=== PATIENT | female | born 1940 | race African-American/Black ===

== ENCOUNTER → 2016-10-04 | Outpatient (CLI) | payer OTHER | LOC: HYPER 07:05 | DX: I87.332 Chronic venous hypertension (idiopathic) with ulcer and inflammation of left lower extremity (principal); L97.822 Non-pressure chronic ulcer of other part of left lower leg with fat layer exposed; I10 Essential (primary) hypertension; E66.09 Other obesity due to excess calories; D50.9 Iron deficiency anemia, unspecified; I87.2 Venous insufficiency (chronic) (peripheral); F41.9 Anxiety disorder, unspecified ==

== ENCOUNTER → 2016-12-25 | Outpatient (CLI) | payer OTHER | LOC: HYPER 06:59 | DX: I87.332 Chronic venous hypertension (idiopathic) with ulcer and inflammation of left lower extremity (principal); L97.822 Non-pressure chronic ulcer of other part of left lower leg with fat layer exposed; E66.09 Other obesity due to excess calories; F41.9 Anxiety disorder, unspecified; Z96.659 Presence of unspecified artificial knee joint ==

== ENCOUNTER → 2017-01-11 | Outpatient (CLI) | payer OTHER | LOC: HYPER 07:13 | DX: I87.332 Chronic venous hypertension (idiopathic) with ulcer and inflammation of left lower extremity (principal); L97.822 Non-pressure chronic ulcer of other part of left lower leg with fat layer exposed; E66.09 Other obesity due to excess calories; F41.9 Anxiety disorder, unspecified ==

== ENCOUNTER → 2017-02-01 | Outpatient (CLI) | payer OTHER | LOC: HYPER 07:08 | DX: I87.332 Chronic venous hypertension (idiopathic) with ulcer and inflammation of left lower extremity (principal); L97.821 Non-pressure chronic ulcer of other part of left lower leg limited to breakdown of skin; L97.411 Non-pressure chronic ulcer of right heel and midfoot limited to breakdown of skin; E66.09 Other obesity due to excess calories; I10 Essential (primary) hypertension; R60.0 Localized edema; F41.9 Anxiety disorder, unspecified; D50.9 Iron deficiency anemia, unspecified ==

== ENCOUNTER → 2017-03-07 | Outpatient (CLI) | payer OTHER | LOC: HYPER 02-26 15:12 | DX: I87.332 Chronic venous hypertension (idiopathic) with ulcer and inflammation of left lower extremity (principal); L97.822 Non-pressure chronic ulcer of other part of left lower leg with fat layer exposed; I25.10 Atherosclerotic heart disease of native coronary artery without angina pectoris; E66.09 Other obesity due to excess calories; I10 Essential (primary) hypertension; F41.9 Anxiety disorder, unspecified; Z68.36 Body mass index [BMI] 36.0-36.9, adult ==

== ENCOUNTER → 2017-03-28 | Outpatient (CLI) | payer OTHER | LOC: HYPER 06:58 | DX: I87.332 Chronic venous hypertension (idiopathic) with ulcer and inflammation of left lower extremity (principal); L97.822 Non-pressure chronic ulcer of other part of left lower leg with fat layer exposed; L84 Corns and callosities; E66.09 Other obesity due to excess calories; Z68.36 Body mass index [BMI] 36.0-36.9, adult; F41.9 Anxiety disorder, unspecified; R26.9 Unspecified abnormalities of gait and mobility ==

== ENCOUNTER → 2017-04-25 | Outpatient (CLI) | payer OTHER | LOC: HYPER 04-18 10:45 | DX: I87.332 Chronic venous hypertension (idiopathic) with ulcer and inflammation of left lower extremity (principal); L97.822 Non-pressure chronic ulcer of other part of left lower leg with fat layer exposed; E66.09 Other obesity due to excess calories; Z68.36 Body mass index [BMI] 36.0-36.9, adult; F41.9 Anxiety disorder, unspecified; L84 Corns and callosities; R26.9 Unspecified abnormalities of gait and mobility ==

== ENCOUNTER → 2017-05-09 | Outpatient (CLI) | payer OTHER | LOC: HYPER 07:02 | DX: I87.332 Chronic venous hypertension (idiopathic) with ulcer and inflammation of left lower extremity (principal); L97.822 Non-pressure chronic ulcer of other part of left lower leg with fat layer exposed; E66.09 Other obesity due to excess calories; Z68.36 Body mass index [BMI] 36.0-36.9, adult; L84 Corns and callosities ==

== ENCOUNTER → 2017-05-30 | Outpatient (CLI) | payer OTHER | LOC: HYPER 06:48 | DX: I87.332 Chronic venous hypertension (idiopathic) with ulcer and inflammation of left lower extremity (principal); L97.822 Non-pressure chronic ulcer of other part of left lower leg with fat layer exposed; E66.09 Other obesity due to excess calories; Z68.36 Body mass index [BMI] 36.0-36.9, adult; F41.9 Anxiety disorder, unspecified ==

== ENCOUNTER → 2017-06-20 | Outpatient (CLI) | payer OTHER | LOC: HYPER 07:09 | DX: I87.332 Chronic venous hypertension (idiopathic) with ulcer and inflammation of left lower extremity (principal); L97.822 Non-pressure chronic ulcer of other part of left lower leg with fat layer exposed; E66.09 Other obesity due to excess calories; R60.0 Localized edema; F41.9 Anxiety disorder, unspecified ==

== ENCOUNTER → 2017-07-03 | Outpatient (CLI) | payer OTHER | LOC: HYPER 07:23 | DX: I87.332 Chronic venous hypertension (idiopathic) with ulcer and inflammation of left lower extremity (principal); L97.822 Non-pressure chronic ulcer of other part of left lower leg with fat layer exposed; E66.09 Other obesity due to excess calories; Z68.36 Body mass index [BMI] 36.0-36.9, adult; F41.9 Anxiety disorder, unspecified ==

== ENCOUNTER → 2017-08-14 | Outpatient (CLI) | payer OTHER | LOC: HYPER 06:45 | DX: I87.332 Chronic venous hypertension (idiopathic) with ulcer and inflammation of left lower extremity (principal); L97.822 Non-pressure chronic ulcer of other part of left lower leg with fat layer exposed; E66.09 Other obesity due to excess calories; L84 Corns and callosities; F41.9 Anxiety disorder, unspecified; Z68.36 Body mass index [BMI] 36.0-36.9, adult ==

== ENCOUNTER → 2017-09-27 | Outpatient (CLI) | payer OTHER | LOC: HYPER 06:50 | DX: I87.332 Chronic venous hypertension (idiopathic) with ulcer and inflammation of left lower extremity (principal); L97.822 Non-pressure chronic ulcer of other part of left lower leg with fat layer exposed; L84 Corns and callosities; F41.9 Anxiety disorder, unspecified; E66.09 Other obesity due to excess calories; Z68.36 Body mass index [BMI] 36.0-36.9, adult; Z96.659 Presence of unspecified artificial knee joint ==

== ENCOUNTER → 2017-10-11 | Outpatient (CLI) | payer OTHER | LOC: HYPER 06:33 | DX: I87.332 Chronic venous hypertension (idiopathic) with ulcer and inflammation of left lower extremity (principal); L97.822 Non-pressure chronic ulcer of other part of left lower leg with fat layer exposed; L84 Corns and callosities; I25.10 Atherosclerotic heart disease of native coronary artery without angina pectoris; F41.9 Anxiety disorder, unspecified; E66.09 Other obesity due to excess calories; Z68.36 Body mass index [BMI] 36.0-36.9, adult ==

== ENCOUNTER → 2017-11-15 | Outpatient (CLI) | payer OTHER | LOC: HYPER 08:37 | DX: I87.332 Chronic venous hypertension (idiopathic) with ulcer and inflammation of left lower extremity (principal); L97.822 Non-pressure chronic ulcer of other part of left lower leg with fat layer exposed; R60.0 Localized edema; L84 Corns and callosities; E66.01 Morbid (severe) obesity due to excess calories; F41.9 Anxiety disorder, unspecified; Z68.36 Body mass index [BMI] 36.0-36.9, adult ==

== ENCOUNTER → 2017-12-17 | Outpatient (CLI) | payer OTHER | LOC: HYPER 12-06 09:41 | DX: I87.332 Chronic venous hypertension (idiopathic) with ulcer and inflammation of left lower extremity (principal); L97.822 Non-pressure chronic ulcer of other part of left lower leg with fat layer exposed; E66.09 Other obesity due to excess calories; Z68.36 Body mass index [BMI] 36.0-36.9, adult; R60.0 Localized edema; L84 Corns and callosities; B35.3 Tinea pedis; F41.9 Anxiety disorder, unspecified ==

== ENCOUNTER → 2018-01-03 | Outpatient (CLI) | payer OTHER | LOC: HYPER 06:56 | DX: I87.332 Chronic venous hypertension (idiopathic) with ulcer and inflammation of left lower extremity (principal); L97.822 Non-pressure chronic ulcer of other part of left lower leg with fat layer exposed; L84 Corns and callosities; E66.09 Other obesity due to excess calories; B35.3 Tinea pedis; F41.9 Anxiety disorder, unspecified; Z68.36 Body mass index [BMI] 36.0-36.9, adult ==

== ENCOUNTER → 2018-02-21 | Outpatient (CLI) | payer OTHER | LOC: HYPER 06:45 | DX: I87.332 Chronic venous hypertension (idiopathic) with ulcer and inflammation of left lower extremity (principal); L97.822 Non-pressure chronic ulcer of other part of left lower leg with fat layer exposed; I10 Essential (primary) hypertension; L84 Corns and callosities; E66.01 Morbid (severe) obesity due to excess calories; B35.3 Tinea pedis; F41.9 Anxiety disorder, unspecified; Z68.36 Body mass index [BMI] 36.0-36.9, adult ==

== ENCOUNTER → 2018-03-06 | Outpatient (CLI) | payer OTHER | LOC: HYPER 07:06 | DX: I87.332 Chronic venous hypertension (idiopathic) with ulcer and inflammation of left lower extremity (principal); L97.822 Non-pressure chronic ulcer of other part of left lower leg with fat layer exposed; L84 Corns and callosities; I10 Essential (primary) hypertension; E66.09 Other obesity due to excess calories; B35.3 Tinea pedis; F41.9 Anxiety disorder, unspecified; Z68.36 Body mass index [BMI] 36.0-36.9, adult ==

== ENCOUNTER → 2018-03-21 | Outpatient (CLI) | payer OTHER | LOC: HYPER 06:49 | DX: I87.332 Chronic venous hypertension (idiopathic) with ulcer and inflammation of left lower extremity (principal); L97.822 Non-pressure chronic ulcer of other part of left lower leg with fat layer exposed; R60.0 Localized edema; B35.3 Tinea pedis; L84 Corns and callosities; F41.9 Anxiety disorder, unspecified; E66.09 Other obesity due to excess calories; Z68.36 Body mass index [BMI] 36.0-36.9, adult ==

== ENCOUNTER → 2018-04-04 | Outpatient (CLI) | payer OTHER | LOC: HYPER 07:13 | DX: I87.332 Chronic venous hypertension (idiopathic) with ulcer and inflammation of left lower extremity (principal); L97.822 Non-pressure chronic ulcer of other part of left lower leg with fat layer exposed; L84 Corns and callosities; E66.09 Other obesity due to excess calories; B35.3 Tinea pedis; F41.9 Anxiety disorder, unspecified; Z68.36 Body mass index [BMI] 36.0-36.9, adult; Z96.659 Presence of unspecified artificial knee joint ==

== ENCOUNTER → 2018-05-14 | Outpatient (CLI) | payer OTHER | LOC: HYPER 07:03 | DX: I87.332 Chronic venous hypertension (idiopathic) with ulcer and inflammation of left lower extremity (principal); L97.822 Non-pressure chronic ulcer of other part of left lower leg with fat layer exposed; E66.09 Other obesity due to excess calories; L84 Corns and callosities; B35.3 Tinea pedis; F41.9 Anxiety disorder, unspecified; Z68.36 Body mass index [BMI] 36.0-36.9, adult ==

== ENCOUNTER → 2018-06-13 | Outpatient (CLI) | payer OTHER | LOC: HYPER 07:02 | DX: I87.332 Chronic venous hypertension (idiopathic) with ulcer and inflammation of left lower extremity (principal); L97.822 Non-pressure chronic ulcer of other part of left lower leg with fat layer exposed; L84 Corns and callosities; B35.3 Tinea pedis; R60.0 Localized edema; E66.09 Other obesity due to excess calories; I10 Essential (primary) hypertension; I25.10 Atherosclerotic heart disease of native coronary artery without angina pectoris; F41.9 Anxiety disorder, unspecified ==

== ENCOUNTER → 2018-07-04 | Outpatient (CLI) | payer OTHER | LOC: HYPER 07:02 | DX: I87.332 Chronic venous hypertension (idiopathic) with ulcer and inflammation of left lower extremity (principal); L97.822 Non-pressure chronic ulcer of other part of left lower leg with fat layer exposed; L84 Corns and callosities; B35.3 Tinea pedis; E66.09 Other obesity due to excess calories; I10 Essential (primary) hypertension; I25.10 Atherosclerotic heart disease of native coronary artery without angina pectoris; R60.0 Localized edema; F41.9 Anxiety disorder, unspecified ==

== ENCOUNTER → 2018-07-15 | Outpatient (CLI) | payer OTHER | LOC: HYPER 06:55 | DX: I87.332 Chronic venous hypertension (idiopathic) with ulcer and inflammation of left lower extremity (principal); L97.822 Non-pressure chronic ulcer of other part of left lower leg with fat layer exposed; L84 Corns and callosities; B35.3 Tinea pedis; E66.09 Other obesity due to excess calories; I10 Essential (primary) hypertension; F41.9 Anxiety disorder, unspecified ==

== ENCOUNTER → 2018-08-08 | Outpatient (CLI) | payer OTHER | LOC: HYPER 07:08 | DX: I87.332 Chronic venous hypertension (idiopathic) with ulcer and inflammation of left lower extremity (principal); L97.822 Non-pressure chronic ulcer of other part of left lower leg with fat layer exposed; L84 Corns and callosities; B35.3 Tinea pedis; E66.09 Other obesity due to excess calories; I10 Essential (primary) hypertension; I25.10 Atherosclerotic heart disease of native coronary artery without angina pectoris; F41.9 Anxiety disorder, unspecified ==

== ENCOUNTER → 2018-09-05 | Outpatient (CLI) | payer OTHER | LOC: HYPER 07:18 | DX: I87.332 Chronic venous hypertension (idiopathic) with ulcer and inflammation of left lower extremity (principal); L97.822 Non-pressure chronic ulcer of other part of left lower leg with fat layer exposed; E66.09 Other obesity due to excess calories; L84 Corns and callosities; B35.3 Tinea pedis; F41.9 Anxiety disorder, unspecified; Z68.36 Body mass index [BMI] 36.0-36.9, adult ==

== ENCOUNTER → 2018-09-26 | Outpatient (CLI) | payer OTHER | LOC: HYPER 05:31 | DX: I87.332 Chronic venous hypertension (idiopathic) with ulcer and inflammation of left lower extremity (principal); L97.822 Non-pressure chronic ulcer of other part of left lower leg with fat layer exposed; L84 Corns and callosities; B35.3 Tinea pedis; E66.09 Other obesity due to excess calories; I87.2 Venous insufficiency (chronic) (peripheral); I10 Essential (primary) hypertension; I25.10 Atherosclerotic heart disease of native coronary artery without angina pectoris; F41.9 Anxiety disorder, unspecified; Z68.36 Body mass index [BMI] 36.0-36.9, adult ==

== ENCOUNTER → 2018-10-24 | Outpatient (CLI) | payer OTHER | LOC: HYPER 07:22 | DX: I87.332 Chronic venous hypertension (idiopathic) with ulcer and inflammation of left lower extremity (principal); L97.822 Non-pressure chronic ulcer of other part of left lower leg with fat layer exposed; L84 Corns and callosities; B35.3 Tinea pedis; E66.09 Other obesity due to excess calories; I25.10 Atherosclerotic heart disease of native coronary artery without angina pectoris; F41.9 Anxiety disorder, unspecified ==

== ENCOUNTER → 2018-11-21 | Outpatient (CLI) | payer OTHER | LOC: HYPER 06:56 | DX: I87.332 Chronic venous hypertension (idiopathic) with ulcer and inflammation of left lower extremity (principal); L97.822 Non-pressure chronic ulcer of other part of left lower leg with fat layer exposed; B35.3 Tinea pedis; E66.09 Other obesity due to excess calories; L84 Corns and callosities; I10 Essential (primary) hypertension; I25.10 Atherosclerotic heart disease of native coronary artery without angina pectoris; F41.9 Anxiety disorder, unspecified ==

== ENCOUNTER → 2018-12-19 | Outpatient (CLI) | payer OTHER | LOC: HYPER 06:55 | DX: I87.332 Chronic venous hypertension (idiopathic) with ulcer and inflammation of left lower extremity (principal); L97.822 Non-pressure chronic ulcer of other part of left lower leg with fat layer exposed; L84 Corns and callosities; B35.3 Tinea pedis; E66.09 Other obesity due to excess calories; I25.10 Atherosclerotic heart disease of native coronary artery without angina pectoris; F41.9 Anxiety disorder, unspecified ==

== ENCOUNTER → 2019-01-02 | Outpatient (CLI) | payer OTHER | LOC: HYPER 06:41 | DX: I87.332 Chronic venous hypertension (idiopathic) with ulcer and inflammation of left lower extremity (principal); L97.822 Non-pressure chronic ulcer of other part of left lower leg with fat layer exposed; E66.09 Other obesity due to excess calories; I87.2 Venous insufficiency (chronic) (peripheral); L84 Corns and callosities; B35.3 Tinea pedis; F41.9 Anxiety disorder, unspecified ==

== ENCOUNTER → 2019-01-30 | Outpatient (CLI) | payer OTHER | LOC: HYPER 06:48 | DX: I87.332 Chronic venous hypertension (idiopathic) with ulcer and inflammation of left lower extremity (principal); L97.822 Non-pressure chronic ulcer of other part of left lower leg with fat layer exposed; L84 Corns and callosities; B35.3 Tinea pedis; E66.09 Other obesity due to excess calories; R60.0 Localized edema; I25.10 Atherosclerotic heart disease of native coronary artery without angina pectoris; F41.9 Anxiety disorder, unspecified ==

== ENCOUNTER → 2019-02-20 | Outpatient (CLI) | payer OTHER | LOC: HYPER 06:49 | DX: I87.332 Chronic venous hypertension (idiopathic) with ulcer and inflammation of left lower extremity (principal); L97.822 Non-pressure chronic ulcer of other part of left lower leg with fat layer exposed; L84 Corns and callosities; B35.3 Tinea pedis; E66.09 Other obesity due to excess calories; R60.0 Localized edema; I25.10 Atherosclerotic heart disease of native coronary artery without angina pectoris; F41.9 Anxiety disorder, unspecified ==

== ENCOUNTER → 2019-03-13 | Outpatient (CLI) | payer OTHER | LOC: HYPER 06:44 | DX: I87.332 Chronic venous hypertension (idiopathic) with ulcer and inflammation of left lower extremity (principal); L97.822 Non-pressure chronic ulcer of other part of left lower leg with fat layer exposed; L84 Corns and callosities; E66.09 Other obesity due to excess calories; R60.0 Localized edema; B35.3 Tinea pedis; I25.10 Atherosclerotic heart disease of native coronary artery without angina pectoris; F41.9 Anxiety disorder, unspecified ==

== ENCOUNTER → 2019-04-03 | Outpatient (CLI) | payer OTHER | LOC: HYPER 06:32 | DX: I87.332 Chronic venous hypertension (idiopathic) with ulcer and inflammation of left lower extremity (principal); L97.822 Non-pressure chronic ulcer of other part of left lower leg with fat layer exposed; L84 Corns and callosities; B35.3 Tinea pedis; E66.09 Other obesity due to excess calories; I25.10 Atherosclerotic heart disease of native coronary artery without angina pectoris; I10 Essential (primary) hypertension; R60.0 Localized edema; F41.9 Anxiety disorder, unspecified ==

== ENCOUNTER → 2019-04-24 | Outpatient (CLI) | payer OTHER | LOC: HYPER 06:55 | DX: I87.332 Chronic venous hypertension (idiopathic) with ulcer and inflammation of left lower extremity (principal); L97.822 Non-pressure chronic ulcer of other part of left lower leg with fat layer exposed; L84 Corns and callosities; B35.3 Tinea pedis; E66.09 Other obesity due to excess calories; R60.0 Localized edema; I25.10 Atherosclerotic heart disease of native coronary artery without angina pectoris; F41.9 Anxiety disorder, unspecified ==

== ENCOUNTER → 2019-05-15 | Outpatient (CLI) | payer OTHER | LOC: HYPER 06:56 | DX: I87.332 Chronic venous hypertension (idiopathic) with ulcer and inflammation of left lower extremity (principal); L97.822 Non-pressure chronic ulcer of other part of left lower leg with fat layer exposed; L84 Corns and callosities; B35.3 Tinea pedis; E66.09 Other obesity due to excess calories; R60.0 Localized edema; I25.10 Atherosclerotic heart disease of native coronary artery without angina pectoris; F41.9 Anxiety disorder, unspecified ==

== ENCOUNTER → 2019-06-05 | Outpatient (CLI) | payer OTHER | LOC: HYPER 06:48 | DX: I87.332 Chronic venous hypertension (idiopathic) with ulcer and inflammation of left lower extremity (principal); L97.822 Non-pressure chronic ulcer of other part of left lower leg with fat layer exposed; E66.09 Other obesity due to excess calories; I87.2 Venous insufficiency (chronic) (peripheral); L84 Corns and callosities; I10 Essential (primary) hypertension; B35.3 Tinea pedis; R60.0 Localized edema; F41.9 Anxiety disorder, unspecified ==

== ENCOUNTER → 2019-06-25 | Outpatient (CLI) | payer OTHER | LOC: HYPER 11:31 | DX: I87.332 Chronic venous hypertension (idiopathic) with ulcer and inflammation of left lower extremity (principal); L97.822 Non-pressure chronic ulcer of other part of left lower leg with fat layer exposed; L84 Corns and callosities; B35.3 Tinea pedis; E66.09 Other obesity due to excess calories; F41.9 Anxiety disorder, unspecified; D50.9 Iron deficiency anemia, unspecified; Z79.82 Long term (current) use of aspirin ==

== ENCOUNTER → 2019-07-10 | Outpatient (CLI) | payer OTHER | LOC: HYPER 11:15 | DX: I87.332 Chronic venous hypertension (idiopathic) with ulcer and inflammation of left lower extremity (principal); L97.822 Non-pressure chronic ulcer of other part of left lower leg with fat layer exposed; L84 Corns and callosities; B35.3 Tinea pedis; I10 Essential (primary) hypertension; D50.9 Iron deficiency anemia, unspecified; E66.09 Other obesity due to excess calories; R60.0 Localized edema; F41.9 Anxiety disorder, unspecified ==

== ENCOUNTER → 2019-08-14 | Outpatient (CLI) | payer OTHER | LOC: HYPER 08:49 | DX: I87.332 Chronic venous hypertension (idiopathic) with ulcer and inflammation of left lower extremity (principal); L97.822 Non-pressure chronic ulcer of other part of left lower leg with fat layer exposed; L84 Corns and callosities; E66.09 Other obesity due to excess calories; R60.0 Localized edema; B35.3 Tinea pedis; I25.10 Atherosclerotic heart disease of native coronary artery without angina pectoris; F41.9 Anxiety disorder, unspecified ==

== ENCOUNTER → 2019-09-11 | Outpatient (CLI) | payer OTHER | LOC: HYPER 14:37 | DX: I87.332 Chronic venous hypertension (idiopathic) with ulcer and inflammation of left lower extremity (principal); L97.822 Non-pressure chronic ulcer of other part of left lower leg with fat layer exposed; L84 Corns and callosities; D50.9 Iron deficiency anemia, unspecified; F41.9 Anxiety disorder, unspecified ==

== ENCOUNTER → 2019-10-09 | Outpatient (CLI) | payer OTHER | LOC: HYPER 14:05 | DX: I87.332 Chronic venous hypertension (idiopathic) with ulcer and inflammation of left lower extremity (principal); L97.822 Non-pressure chronic ulcer of other part of left lower leg with fat layer exposed; L84 Corns and callosities; B35.3 Tinea pedis; E66.09 Other obesity due to excess calories; I25.10 Atherosclerotic heart disease of native coronary artery without angina pectoris; R60.0 Localized edema; F41.9 Anxiety disorder, unspecified ==

== ENCOUNTER → 2019-10-30 | Outpatient (CLI) | payer OTHER | LOC: HYPER 12:22 | DX: I87.332 Chronic venous hypertension (idiopathic) with ulcer and inflammation of left lower extremity (principal); L97.822 Non-pressure chronic ulcer of other part of left lower leg with fat layer exposed; L84 Corns and callosities; I10 Essential (primary) hypertension; B35.3 Tinea pedis; E66.09 Other obesity due to excess calories; F41.9 Anxiety disorder, unspecified; Z68.1 Body mass index [BMI] 19.9 or less, adult; Z79.82 Long term (current) use of aspirin ==

== ENCOUNTER → 2019-11-03 | Outpatient (CLI) | payer OTHER | LOC: SJCVCIMAG 08:49 | DX: I70.203 Unspecified atherosclerosis of native arteries of extremities, bilateral legs (principal); L97.909 Non-pressure chronic ulcer of unspecified part of unspecified lower leg with unspecified severity ==

== ENCOUNTER → 2019-11-20 | Outpatient (CLI) | payer OTHER | LOC: HYPER 14:14 | DX: I87.332 Chronic venous hypertension (idiopathic) with ulcer and inflammation of left lower extremity (principal); L97.822 Non-pressure chronic ulcer of other part of left lower leg with fat layer exposed; L84 Corns and callosities; R60.0 Localized edema; B35.3 Tinea pedis; E66.09 Other obesity due to excess calories; F41.9 Anxiety disorder, unspecified; Z79.82 Long term (current) use of aspirin ==

== ENCOUNTER 2019-12-02 11:46 | Outpatient (CLI) | payer OTHER ==
[~2019-12-02] VITALS: Ht 177.8 cm; Wt 115.7 kg
[2019-12-02 12:36] VITALS: BP 168/65
[2019-12-02 12:48] LABS: HEMATOCRIT 34.9 % (37.0-47.0); HEMOGLOBIN 10.6 gm/dL (12.0-15.0); MCH 22.6 pg (26.0-34.0); MCHC 30.4 g/dL (28.0-37.0); MCV 74.2 fL (80.0-100.0); RBC 4.7 mil/uL (4.20-5.00); RDW 14.7 % (10.5-14.5); WBC 4.9 thou/uL (4.0-11.0)
[2019-12-02 12:57] LABS: CREATININE 0.7 mg/dL (0.6-1.0); POTASSIUM 4.5 mmol/L (3.5-5.1)
[2019-12-02] MEDS ORDERED: ALPRAZOLAM XR3 MG PO (12:59)
[2019-12-02] MEDS ORDERED: ASA81BEC PO (13:00)
[2019-12-02] MEDS ORDERED: AMLODIPINE-BEN1 EACH PO (13:00)
[2019-12-02] MEDS ORDERED: LIPITOR20 MG PO (13:01)
[2019-12-02] MEDS ORDERED: NORCO 10-325 T1 EACH PO (13:02)
[2019-12-02] MEDS ORDERED: COZAAR100 MG PO (13:03)
[2019-12-02 16:30] VITALS: BP 146/60
--- NOTE | 2019-12-02 16:41 | NUR ---
PT ARRIVED TO THE UNIT AT APPROX 1620 BY DANCE ENTERTAINER STAFF ACCOMPANIED BY . PT ALERT AND ORIENTED. POST CATH VITAL SIGNS INITIATED. RIGHT GROIN SITE CDI, NO HEMATOMA. INSTRUCTED IMMOBILIZATION ENFORCED. O2 SATS WNL ON ROOM AIR. PT CURRENTLY RESTING IN BED, EDUCATED ON IMMOBILIZATION OF LEG. WILL CONT TO MONITOR PT AND FOLLOW POC.
[2019-12-02 19:15] VITALS: BP 153/90
--- NOTE | 2019-12-02 19:59 | NUR ---
PT HS ASSESSMENT COMPLETE. PT A&O X4 ABLE TO MAKE NEEDS KNOWN. PT CONTINUES ON BEDREST POST R GROIN CATH TILL 2015HRS. GROIN SITE DRESSING CDI. DENIES PAIN. SPOUSE AT BEDSIDE. PT SCHEDULE TO DISCHARGE TO HOME AFTER BEDREST. PT AWARE.
[2019-12-02 20:45] VITALS: BP 154/75
--- NOTE | 2019-12-02 21:31 | NUR ---
PT DISCHARGED TO HOME IN STABLE CONDITION. VSS. GROIN SITE DRESSING CDI.
== END 2019-12-02 21:40 | disposition home or self-care (01) ==
LOC: CATH 11:46 → 2N 16:20 → CATH 18:08
PROVIDERS: Nuclear Medicine Nuclear Cardiology
DX: I70.248 Atherosclerosis of native arteries of left leg with ulceration of other part of lower leg (principal); L97.829 Non-pressure chronic ulcer of other part of left lower leg with unspecified severity; I70.213 Atherosclerosis of native arteries of extremities with intermittent claudication, bilateral legs; I70.1 Atherosclerosis of renal artery; I10 Essential (primary) hypertension; E78.5 Hyperlipidemia, unspecified; I25.10 Atherosclerotic heart disease of native coronary artery without angina pectoris; Z98.890 Other specified postprocedural states; Z79.899 Other long term (current) drug therapy; Z96.652 Presence of left artificial knee joint; Z79.82 Long term (current) use of aspirin; Z88.0 Allergy status to penicillin
CPT/HCPCS: 10081

== ENCOUNTER → 2019-12-11 | Outpatient (CLI) | payer OTHER ==
[~2019-12-11] MED LIST: ALPRAZOLAM XR3 MG PO; AMLODIPINE-BEN1 EACH PO; ASA81BEC PO; COZAAR100 MG PO; LIPITOR20 MG PO; NORCO 10-325 T1 EACH PO
== END ==
LOC: HYPER 14:02
DX: I87.332 Chronic venous hypertension (idiopathic) with ulcer and inflammation of left lower extremity (principal); L97.822 Non-pressure chronic ulcer of other part of left lower leg with fat layer exposed; L84 Corns and callosities; B35.3 Tinea pedis; E66.09 Other obesity due to excess calories; I25.10 Atherosclerotic heart disease of native coronary artery without angina pectoris; R60.0 Localized edema; F41.9 Anxiety disorder, unspecified

== ENCOUNTER → 2020-01-01 | Outpatient (CLI) | payer OTHER | LOC: HYPER 13:40 | DX: I87.332 Chronic venous hypertension (idiopathic) with ulcer and inflammation of left lower extremity (principal); L97.822 Non-pressure chronic ulcer of other part of left lower leg with fat layer exposed; L84 Corns and callosities; B35.3 Tinea pedis; E66.09 Other obesity due to excess calories; R60.0 Localized edema; I87.2 Venous insufficiency (chronic) (peripheral); I25.10 Atherosclerotic heart disease of native coronary artery without angina pectoris; I10 Essential (primary) hypertension; F41.9 Anxiety disorder, unspecified; Z68.1 Body mass index [BMI] 19.9 or less, adult ==

== ENCOUNTER → 2020-01-08 | Outpatient (CLI) | payer OTHER | LOC: SJCVCIMAG 08:41 | DX: I87.2 Venous insufficiency (chronic) (peripheral) (principal); I73.9 Peripheral vascular disease, unspecified; I25.10 Atherosclerotic heart disease of native coronary artery without angina pectoris; E78.00 Pure hypercholesterolemia, unspecified; I10 Essential (primary) hypertension ==

== ENCOUNTER → 2020-01-20 | Outpatient (CLI) | payer OTHER ==
[~2020-01-20] VITALS: Ht 180.3 cm; Wt 68.0 kg
[~2020-01-20] MED LIST changes: +CARVEDILOL25 MG PO; +XANAX 0.5 MG0.5 M1 PO
[2020-01-20 14:54] VITALS: BP 151/71
== END | disposition home or self-care (01) ==
LOC: CATH 01-12 08:23
DX: I87.1 Compression of vein (principal); I87.2 Venous insufficiency (chronic) (peripheral); R22.40 Localized swelling, mass and lump, unspecified lower limb; I10 Essential (primary) hypertension; E78.00 Pure hypercholesterolemia, unspecified; I25.10 Atherosclerotic heart disease of native coronary artery without angina pectoris; Z98.890 Other specified postprocedural states; Z79.899 Other long term (current) drug therapy

== ENCOUNTER → 2020-01-22 | Outpatient (CLI) | payer OTHER | LOC: HYPER 13:45 | DX: I87.332 Chronic venous hypertension (idiopathic) with ulcer and inflammation of left lower extremity (principal); L97.822 Non-pressure chronic ulcer of other part of left lower leg with fat layer exposed; L84 Corns and callosities; B35.3 Tinea pedis; E66.09 Other obesity due to excess calories; R60.0 Localized edema; I25.10 Atherosclerotic heart disease of native coronary artery without angina pectoris; F41.9 Anxiety disorder, unspecified ==

== ENCOUNTER → 2020-02-05 | Outpatient (CLI) | payer OTHER | LOC: HYPER 10:50 | DX: I87.332 Chronic venous hypertension (idiopathic) with ulcer and inflammation of left lower extremity (principal); L97.822 Non-pressure chronic ulcer of other part of left lower leg with fat layer exposed; L84 Corns and callosities; B35.3 Tinea pedis; E66.09 Other obesity due to excess calories; R60.0 Localized edema; I25.10 Atherosclerotic heart disease of native coronary artery without angina pectoris; F41.9 Anxiety disorder, unspecified ==

== ENCOUNTER → 2020-02-19 | Outpatient (CLI) | payer OTHER | LOC: HYPER 13:34 | DX: I87.332 Chronic venous hypertension (idiopathic) with ulcer and inflammation of left lower extremity (principal); L97.822 Non-pressure chronic ulcer of other part of left lower leg with fat layer exposed; L84 Corns and callosities; B35.3 Tinea pedis; E66.09 Other obesity due to excess calories; R60.0 Localized edema; I25.10 Atherosclerotic heart disease of native coronary artery without angina pectoris; F41.9 Anxiety disorder, unspecified ==

== ENCOUNTER → 2020-03-03 | Outpatient (CLI) | payer OTHER | LOC: HYPER 13:01 | PROVIDERS: ATTEND Emergency Medicine | DX: I87.332 Chronic venous hypertension (idiopathic) with ulcer and inflammation of left lower extremity (principal); L97.822 Non-pressure chronic ulcer of other part of left lower leg with fat layer exposed; L84 Corns and callosities; B35.3 Tinea pedis; E66.09 Other obesity due to excess calories; R60.0 Localized edema; I25.10 Atherosclerotic heart disease of native coronary artery without angina pectoris; I10 Essential (primary) hypertension; F41.9 Anxiety disorder, unspecified; Z68.1 Body mass index [BMI] 19.9 or less, adult ==

== ENCOUNTER → 2020-03-18 | Outpatient (CLI) | payer OTHER | LOC: HYPER 12:54 | PROVIDERS: ATTEND Emergency Medicine | DX: I87.332 Chronic venous hypertension (idiopathic) with ulcer and inflammation of left lower extremity (principal); L97.822 Non-pressure chronic ulcer of other part of left lower leg with fat layer exposed; L84 Corns and callosities; B35.3 Tinea pedis; R60.0 Localized edema; E66.09 Other obesity due to excess calories; I25.10 Atherosclerotic heart disease of native coronary artery without angina pectoris; I10 Essential (primary) hypertension; F41.9 Anxiety disorder, unspecified; Z68.1 Body mass index [BMI] 19.9 or less, adult ==

== ENCOUNTER → 2020-04-01 | Outpatient (CLI) | payer OTHER | LOC: HYPER 07:30 | PROVIDERS: ATTEND Emergency Medicine | DX: I87.332 Chronic venous hypertension (idiopathic) with ulcer and inflammation of left lower extremity (principal); L97.822 Non-pressure chronic ulcer of other part of left lower leg with fat layer exposed; L84 Corns and callosities; R60.0 Localized edema; B35.3 Tinea pedis; E66.09 Other obesity due to excess calories; I25.10 Atherosclerotic heart disease of native coronary artery without angina pectoris; F41.9 Anxiety disorder, unspecified ==

== ENCOUNTER → 2020-04-15 | Outpatient (CLI) | payer OTHER | LOC: HYPER 11:33 | PROVIDERS: ATTEND Emergency Medicine | DX: I87.332 Chronic venous hypertension (idiopathic) with ulcer and inflammation of left lower extremity (principal); L97.822 Non-pressure chronic ulcer of other part of left lower leg with fat layer exposed; L84 Corns and callosities; R60.0 Localized edema; B35.3 Tinea pedis; E66.09 Other obesity due to excess calories; I25.10 Atherosclerotic heart disease of native coronary artery without angina pectoris; F41.9 Anxiety disorder, unspecified; Z68.1 Body mass index [BMI] 19.9 or less, adult ==

== ENCOUNTER → 2020-04-29 | Outpatient (CLI) | payer OTHER | LOC: HYPER 14:16 | PROVIDERS: ATTEND Emergency Medicine | DX: I87.332 Chronic venous hypertension (idiopathic) with ulcer and inflammation of left lower extremity (principal); L97.822 Non-pressure chronic ulcer of other part of left lower leg with fat layer exposed; L84 Corns and callosities; B35.3 Tinea pedis; R60.0 Localized edema; E66.09 Other obesity due to excess calories; I25.10 Atherosclerotic heart disease of native coronary artery without angina pectoris; F41.9 Anxiety disorder, unspecified; Z68.1 Body mass index [BMI] 19.9 or less, adult ==

== ENCOUNTER → 2020-05-13 | Outpatient (CLI) | payer OTHER | LOC: HYPER 09:36 | PROVIDERS: ATTEND Emergency Medicine | DX: I87.332 Chronic venous hypertension (idiopathic) with ulcer and inflammation of left lower extremity (principal); L97.822 Non-pressure chronic ulcer of other part of left lower leg with fat layer exposed; L84 Corns and callosities; B35.3 Tinea pedis; R60.0 Localized edema; E66.09 Other obesity due to excess calories; F41.9 Anxiety disorder, unspecified; Z79.82 Long term (current) use of aspirin; Z68.1 Body mass index [BMI] 19.9 or less, adult ==

== ENCOUNTER → 2020-06-01 | Outpatient (CLI) | payer OTHER | LOC: HYPER 14:41 | PROVIDERS: ATTEND Emergency Medicine | DX: I87.332 Chronic venous hypertension (idiopathic) with ulcer and inflammation of left lower extremity (principal); L97.822 Non-pressure chronic ulcer of other part of left lower leg with fat layer exposed; L84 Corns and callosities; E66.09 Other obesity due to excess calories; R60.0 Localized edema; B35.3 Tinea pedis; I25.10 Atherosclerotic heart disease of native coronary artery without angina pectoris; F41.9 Anxiety disorder, unspecified; Z68.1 Body mass index [BMI] 19.9 or less, adult ==

== ENCOUNTER → 2020-06-15 | Outpatient (CLI) | payer OTHER | LOC: HYPER 09:19 | PROVIDERS: ATTEND Emergency Medicine | DX: I87.332 Chronic venous hypertension (idiopathic) with ulcer and inflammation of left lower extremity (principal); L97.822 Non-pressure chronic ulcer of other part of left lower leg with fat layer exposed; L84 Corns and callosities; R60.0 Localized edema; E66.09 Other obesity due to excess calories; B35.3 Tinea pedis; I25.10 Atherosclerotic heart disease of native coronary artery without angina pectoris; F41.9 Anxiety disorder, unspecified; Z68.1 Body mass index [BMI] 19.9 or less, adult ==

== ENCOUNTER → 2020-07-01 | Outpatient (CLI) | payer OTHER | LOC: HYPER 14:09 | PROVIDERS: ATTEND Emergency Medicine | DX: I87.332 Chronic venous hypertension (idiopathic) with ulcer and inflammation of left lower extremity (principal); L97.822 Non-pressure chronic ulcer of other part of left lower leg with fat layer exposed; L84 Corns and callosities; E66.09 Other obesity due to excess calories; R60.0 Localized edema; B35.3 Tinea pedis; I25.10 Atherosclerotic heart disease of native coronary artery without angina pectoris; F41.9 Anxiety disorder, unspecified; Z68.1 Body mass index [BMI] 19.9 or less, adult ==

== ENCOUNTER → 2020-07-15 | Outpatient (CLI) | payer OTHER | LOC: HYPER 14:16 | PROVIDERS: ATTEND Emergency Medicine | DX: I87.332 Chronic venous hypertension (idiopathic) with ulcer and inflammation of left lower extremity (principal); L97.822 Non-pressure chronic ulcer of other part of left lower leg with fat layer exposed; I87.2 Venous insufficiency (chronic) (peripheral); R60.0 Localized edema; I10 Essential (primary) hypertension; L84 Corns and callosities; B35.3 Tinea pedis; E66.09 Other obesity due to excess calories; F41.9 Anxiety disorder, unspecified; Z79.82 Long term (current) use of aspirin ==

== ENCOUNTER → 2020-08-05 | Outpatient (CLI) | payer OTHER | LOC: HYPER 14:27 | PROVIDERS: ATTEND Emergency Medicine | DX: I87.332 Chronic venous hypertension (idiopathic) with ulcer and inflammation of left lower extremity (principal); L97.822 Non-pressure chronic ulcer of other part of left lower leg with fat layer exposed; L84 Corns and callosities; B35.3 Tinea pedis; R60.0 Localized edema; E66.09 Other obesity due to excess calories; F41.9 Anxiety disorder, unspecified; Z79.82 Long term (current) use of aspirin ==

== ENCOUNTER → 2020-08-16 | Outpatient (CLI) | payer OTHER | LOC: HYPER 14:22 | PROVIDERS: ATTEND Emergency Medicine | DX: I87.332 Chronic venous hypertension (idiopathic) with ulcer and inflammation of left lower extremity (principal); L97.822 Non-pressure chronic ulcer of other part of left lower leg with fat layer exposed; L84 Corns and callosities; B35.3 Tinea pedis; R60.0 Localized edema; E66.09 Other obesity due to excess calories; F41.9 Anxiety disorder, unspecified; Z79.82 Long term (current) use of aspirin; Z68.1 Body mass index [BMI] 19.9 or less, adult ==

== ENCOUNTER → 2020-09-02 | Outpatient (CLI) | payer OTHER | LOC: HYPER 14:48 | PROVIDERS: ATTEND Emergency Medicine | DX: I87.332 Chronic venous hypertension (idiopathic) with ulcer and inflammation of left lower extremity (principal); L97.822 Non-pressure chronic ulcer of other part of left lower leg with fat layer exposed; R60.0 Localized edema; L84 Corns and callosities; B35.3 Tinea pedis; I10 Essential (primary) hypertension; F41.9 Anxiety disorder, unspecified; E66.09 Other obesity due to excess calories; Z79.82 Long term (current) use of aspirin ==

== ENCOUNTER → 2020-09-21 | Outpatient (CLI) | payer OTHER | LOC: HYPER 14:14 | PROVIDERS: ATTEND Emergency Medicine | DX: I87.332 Chronic venous hypertension (idiopathic) with ulcer and inflammation of left lower extremity (principal); L97.822 Non-pressure chronic ulcer of other part of left lower leg with fat layer exposed; R60.0 Localized edema; L84 Corns and callosities; B35.3 Tinea pedis; E66.09 Other obesity due to excess calories; I25.10 Atherosclerotic heart disease of native coronary artery without angina pectoris; I10 Essential (primary) hypertension; F41.9 Anxiety disorder, unspecified; Z79.82 Long term (current) use of aspirin; Z68.1 Body mass index [BMI] 19.9 or less, adult ==

== ENCOUNTER 2020-09-28 16:06 | Inpatient (IN) | payer OTHER ==
[~2020-09-28] VITALS: Ht 180.3 cm; Wt 111.1 kg
[2020-09-28 16:11] VITALS: BP 190/79
[2020-09-28 19:56] LABS: ABSOLUTE NEUTROPHILS 3.1 thou/uL (1.4-8.2); EOSINOPHILS 4.5 % (0.0-3.0); HEMATOCRIT 33.7 % (37.0-47.0); HEMOGLOBIN 10.5 gm/dL (12.0-15.0); LYMPHOCYTES 28.3 % (24.0-44.0); MCH 22.8 pg (26.0-34.0); MCHC 31.2 g/dL (28.0-37.0); MCV 73.1 fL (80.0-100.0); PLATELET COUNT 252 thou/uL (150-400); POLYS 55.2 % (36.0-66.0); RDW 15.3 % (10.5-14.5); WBC 5.6 thou/uL (4.0-11.0)
[2020-09-28 20:03] LABS: CALCIUM 9.3 mg/dL (8.5-10.1); CREATININE 0.8 mg/dL (0.6-1.0); POTASSIUM 3.9 mmol/L (3.5-5.1)
[2020-09-28 20:10] LABS: ALBUMIN 3.3 g/dL (3.4-5.0); DIRECT BILIRUBIN 0.1 mg/dL (<0.1-0.2); TOTAL BILIRUBIN 0.3 mg/dL (0.2-1.0); TOTAL PROTEIN 8.5 g/dL (6.4-8.2)
[2020-09-28 20:31] LABS: PROTIME 10.5 Seconds (9.3-11.4)
[2020-09-28 22:24] VITALS: BP 126/46
[2020-09-28 22:35] VITALS: BP 126/46
[2020-09-28] MEDS ORDERED: BACTRIM DS TAB1 EAC1 PO (23:00)
[2020-09-29 01:45] VITALS: BP 148/64
--- NOTE | 2020-09-29 02:53 | NUR ---
PT WAS ADMITTED TO THE UNIT FROM THE ER IN A STABLE CONDITION.PT DENIED PAIN SO FAR.IVF AND IV ABX ADMINISTERED ORDERED.DRSG TO THE WOUND ON HER LLE CHANGED.C/D/I.PT NPO AT THIS TIME FOR SURGERY IN THE AM.PT SLEEPING ON HER BED AT THIS TIME.CALL LIGHT WITHIN REACH.
[2020-09-29 05:24] LABS: HEMATOCRIT 29.3 % (37.0-47.0); HEMOGLOBIN 9.1 gm/dL (12.0-15.0); MCH 22.9 pg (26.0-34.0); MCHC 30.9 g/dL (28.0-37.0); MCV 73.9 fL (80.0-100.0); RBC 3.96 mil/uL (4.20-5.00); WBC 4.8 thou/uL (4.0-11.0)
[2020-09-29 05:38] LABS: CALCIUM 8.8 mg/dL (8.5-10.1); CREATININE 0.7 mg/dL (0.6-1.0); POTASSIUM 3.7 mmol/L (3.5-5.1)
[2020-09-29 07:15] VITALS: BP 146/64
--- NOTE | 2020-09-29 08:39 | NUR ---
ASSUMED CARE OF PATIENT,SBA ASSIST TO BATHROOM. PT ALERT XS4 TO HAVE DEBRIDEMENT TODAY HAS REMAINED NPO. NO PAIN OR RESP DISTRESS THIS MORNING.
--- NOTE | 2020-09-29 09:07 | NUR ---
PATIENT LEFT UNIT AT THIS TIME FOR PRE OP AND DEBRIDEMENT GIVEN CARVEDIOL PER DR REQUEST WILL GIVE REST OF AM MEDS WHEN SHE RETURNS TO UNIT. NO PAIN OR RESP DISTRESS AT TRANSFER TO PRE OP
--- NOTE | 2020-09-29 15:57 | NUR ---
ASSESSMENT: CM REVIEWED CHART CHART AND SPOKE WITH PT AND HER AT THE BEDSIDE. PT WAS ADMITTED FROM HOME DUE TO LEFT LEG WOUND. PT IS CURRENTLY ON IV ANBX. PT REPORTS SHE HAS HAD HH IN THE PAST BUT UNSURE THE AGENCY. PT REPORTS LIVING IN A HOUSE WITH HER AND HAS NO STEPS TO ENTER OR ONCE INSIDE. SHE REPORTS SHE USES A CANE FOR AMBULATION. PT REPORTS NO HX OF SNF. CM DISCUSSED ROLE. PT REPORTS HH MAY BE BENEFICIAL AT DISCHARGE. CM WILL CONTINUE TO FOLLOW TO ASSIST NEEDED.
[2020-09-29 16:00] VITALS: BP 153/67
[2020-09-29 19:55] VITALS: BP 138/49
[2020-09-29 23:29] LABS: URINE BILIRUBIN NEGATIVE (Negative); URINE BLOOD 1+ (Negative); URINE CLARITY CLEAR; URINE COLOR YELLOW; URINE GLUCOSE-RANDOM* 1+ (Negative); URINE KETONES NEGATIVE (Negative); URINE LEUKOCYTES-REFLEX NEGATIVE (Negative); URINE NITRITE-REFLEX NEGATIVE (Negative); URINE PROTEIN (DIPSTICK) NEGATIVE (Negative); URINE SPECIFIC GRAVITY 1.025 (1.005-1.035); URINE UROBILINOGEN 0.2 E.U./dl (0.2-1.0)
[2020-09-29 23:57] LABS: BACTERIA-REFLEX 1-9 Few /HPF (None Seen); CASTS None Seen /LPF (None Seen); CRYSTALS None Seen /LPF (None Seen); MUCUS None Seen strn/LPF (None Seen); SQUAMOUS 0-3 Few /LPF (0-3); URINE RBC 3-10 Few /HPF (0-2); URINE WBC-REFLEX 0-5 Rare /HPF (0-5)
--- NOTE | 2020-09-30 05:05 | NUR ---
PT C/O PAIN TO HER LLE,MANAGED WITH MED.PT'S DRSG TO HER LLE C/D/I.PT UP WITH WALKER AND SBA TO THE TOILET.PT ABLE TO MAKE HER NEEDS KNOWN.CALL LIGHT WITHIN REACH.
[2020-09-30 08:13] VITALS: BP 176/91
--- NOTE | 2020-09-30 08:47 | NUR ---
on-going assessment: PT HAS NO PRFERENCE OF COMPANY AND FEELS SHE WILL BENEFIT FROM AT DISCHARGE. CM FAXED REFERRAL TO [facility].
--- NOTE | 2020-09-30 09:52 | NUR ---
pt is a&o x4. pt is plesant. poor circulation of LLE and covered with francia wrap. standby with walker. fall precaution . call light within reach. IV on L. AC d/c and IV on left wrist is intact and shows no signs of redness or swelling. ra. pt denies any nausea or vomitting. scd hose are in place. pt complains of pain. pt is tolerating well with aspirin. will continue to monitor.
--- NOTE | 2020-09-30 11:40 | HC ---
[facility] [place] [address] [address] CONSULTATION Name: DOMINICK DAVILA Room #: 437-P ADM IN M.R.#: [id number] Admission: 09/28/20 Attend Phys: Garret Miller MD Discharge: Date of : 42 Report #: [id number] THIS REPORT FOR: cc: Nikita Feliz MD, Michael B. MD Barry, Joseph W. MD ~ DATE OF SERVICE: 09/29/2020 INFECTIOUS DISEASE CONSULTATION ATTENDING PHYSICIAN: Dr. Garret Miller. REASON FOR EVALUATION: Chronic left lower extremity ulcer complicated by bacterial infection. 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 She noted increasing drainage that was malodorous. Denied significant systemic illness. No fevers or chills. Appetite has been satisfactory. No pulmonary or gastrointestinal related complaints. She did undergo operative debridement today. Gram stain showed polymicrobial appearance. She has been empirically started on vancomycin. ALLERGIES: Listed to PENICILLIN, she does not recall, it has been several decades. CURRENT MEDICATIONS: Include vancomycin, aspirin, losartan, atorvastatin, carvedilol, famotidine, alprazolam, hydrocodone, p.r.n. analgesics and antiemetics. PAST MEDICAL HISTORY: History of hypertension, has known coronary artery disease, peripheral arterial disease, iron deficiency anemia, anxiety, hyperlipidemia, chronic left lower extremity ulcer, followed [facility]. SOCIAL HISTORY: Nonsmoker, no ethanol, no illicit drug use. FAMILY HISTORY: Noncontributory. REVIEW OF SYSTEMS: Otherwise, unremarkable 10-point review of systems. PHYSICAL EXAMINATION: GENERAL: She is pleasant, alert, cooperative, in mild distress, appears somewhat chronically ill, mildly undernourished. [facility] [address] [place] [address] CONSULTATION Name: DOMINICK DAVILA Room #: 437-P [facility]#: [id number] Admission: 09/28/20 Attend Phys: Garret Miller MD Discharge: Date of : 42 Report #: [id number] VITAL SIGNS: Temperature 98.3, pulse 79, respirations 18, and blood pressure 146/64. SKIN: Warm, dry, no rashes. HEENT: Normocephalic. Extraocular muscles intact. NECK: Supple. LUNGS: Diminished breath sounds. HEART: Regular. I do not appreciate any murmur. ABDOMEN: Soft, nontender. EXTREMITIES: Left lower extremity has a compressive dressing to below the knee. This was left undisturbed. GENITOURINARY AND RECTAL: Deferred. LABORATORY DATA: Gram stain as described above with rare gram-positive cocci, rare gram-positive rods, rare gram-negative rods, rare wbc's. Blood cultures sterile thus far x 2. Electrolytes: Sodium 142, potassium 3.7, chloride 107, bicarbonate 27, anion gap of 9, BUN and creatinine 19 and 0.9, estimated GFR of 98. CBC: White count of 4.8, H and H 9.1 and 29.3, platelets of 195. Coronavirus testing was negative x 2. Sed rate of 69. Procalcitonin less than 0.05. Chest x-ray showed cardiomegaly with chronic scarring of both lungs. No evidence of pneumonia. ASSESSMENT AND PLAN: Distal left lower extremity chronic wound. This has been apparently secondarily infected with perhaps polymicrobial etiology. She is on vancomycin. We will add some gram-negative coverage as well, pending the results of the culture. At this point, we will defer to wound care. Try to optimize her nutritional status. We will add incentive spirometry. Monitor expectantly. <ELECTRONICALLY SIGNED> By: Carlos Peterson MD 09/30/20 1140 [id number] 1601 Carlos Peterson MD /nt
[2020-09-30 11:48] VITALS: BP 176/91
--- NOTE | 2020-09-30 11:55 | NUR ---
Assess due to pt with open wound to LLE. Visit today, pt reports excellent appetite, no wt changes, eats high protein foods. Low nutrition risk
[2020-09-30 12:14] LABS: ABSOLUTE RETIC COUNT 0.049 10^6/uL; OBSERVED RETIC COUNT 1.17 % (0.6-2.6)
[2020-09-30 12:32] LABS: % SATURATION 25 % (20-39); IRON 56 ug/dL (50-170); TIBC 224 ug/dL (250-450)
[2020-09-30 15:48] VITALS: BP 161/87
[2020-09-30 19:02] VITALS: BP 141/53
--- NOTE | 2020-09-30 23:27 | NUR ---
ASSESSMENT COMPLETED. PT IS PLEASANT AND COOPERATIVE. DENIES ANY SOA OR COUGH.DRSG TO LLE INTACT. AFEBRILE. CONTINUES ON IV ABTS. DENIES ANY CONCERNS.
[2020-10-01 04:05] VITALS: BP 146/72
[2020-10-01 07:14] VITALS: BP 171/84
--- NOTE | 2020-10-01 10:58 | NUR ---
Assumed care of pt at 0700. Pt a&ox4. Pain controlled with prn pain meds. IVF infusing. SBA with walker and gait-belt. Family at bedside. IV antibiotics infusing. Call light within reach. Will continue to monitor.
--- NOTE | 2020-10-01 13:36 | NUR ---
ON-GOING ASSESSMENT: CM REVIEWED CHART. PT REMAINS ON IV VANC AND IV CEFEPIME Q12. WE ARE AWAITING SENSITIVITIES AT THIS TIME AND FINAL RECS FROM ID. [facility] IS FOLLOWING PT AND CAN ACCEPT FOR HOME HEALTH ONCE STABLE TO DISCHARGE. CM NOTIFIED [facility] OF POSSIBLE WEEKEND D/C AND THEY REQUEST D/C ORDERS BE FAXED TO THEM AT [phone]. [facility] ALREADY DELIVERED A WALKER FOR HOME FOR PT.
[2020-10-01 15:24] VITALS: BP 152/71
--- NOTE | 2020-10-01 16:06 | PATH ---
[facility] [address] [place] [address] PATHOLOGY RPT PROCEDURE Name: DOMINICK DAVILA Room #: 437-P ADM IN M.R.#: [id number] Admission: 09/28/20 Date of : 42 Discharge: Report #: [id number] Path Case #: [id number] [facility] Accession Number: [id number] . 01 Material submitted: . leg - LEFT LOWER LEG TISSUE. Modifiers: left, lower . 01 Clinical history: . LEFT LATERAL LOWER LEG WOUND . 02 Diagnosis: Skin, lateral left leg wound, incision and drainage: - Skin and subcutaneous tissue showing ulceration, fibrinoid degeneration and marked acute inflammation as well as abscess formation. (IUV/db; 10/01/2020) LBQ 10/01/2020 1250 Local . 02 Electronically signed: . Allison Smith MD, Pathologist NPI- [id number] . 01 Gross description: . The specimen is received in formalin, labeled "Idelia Davila, left lower leg tissue". Received is a moderate amount of dusky brown-brown necrotic tissue admixed with possible skin measuring 4.5 x 4.0 x 1.5 cm in aggregate dimensions. The specimen is submitted representatively in cassette A1. (CAA; 09/30/2020) QAC/QAC 09/30/2020 1315 Local . 02 Pathologist provided ICD-10: L08.9, L98.499 . 02 CPT . 927342 Specimen Comment: A courtesy copy of this report has been sent to [phone], [phone] Specimen Comment: [phone] Specimen Comment: Report sent to / DR BAR Performed at: [address], [place] [id number] MD Tom Whitfield MD Phone: [phone] Performed at: [address] [id number] MD Allison Smith MD Phone: [phone]
[2020-10-01 20:36] VITALS: BP 132/67
--- NOTE | 2020-10-02 03:35 | NUR ---
PLEASANT LADY. UP WITH WALKER TO THE BATHROOM. SHE IS VOIDING OKAY.GETTING NORCO Q6 FOR PAIN. DRSG TO LLE IS INTACT.AFEBRILE. CONTINUES ON IV ABTS.
[2020-10-02 07:56] VITALS: BP 159/69
[2020-10-02 10:28] LABS: HEMATOCRIT 32.6 % (37.0-47.0); HEMOGLOBIN 9.8 gm/dL (12.0-15.0); MCH 22.5 pg (26.0-34.0); MCHC 30.2 g/dL (28.0-37.0); MCV 74.5 fL (80.0-100.0); RBC 4.37 mil/uL (4.20-5.00); RDW 15.7 % (10.5-14.5); WBC 5.3 thou/uL (4.0-11.0)
[2020-10-02 10:44] LABS: CALCIUM 8.9 mg/dL (8.5-10.1); CREATININE 0.8 mg/dL (0.6-1.0); MAGNESIUM 1.8 mg/dL (1.8-2.4); POTASSIUM 3.4 mmol/L (3.5-5.1)
[2020-10-02 16:32] VITALS: BP 143/78
--- NOTE | 2020-10-02 18:27 | NUR ---
ASSUMED CARE OF THE PATIENT AT 0715, PATIENT ALERT AND ORIENTED X 4. PATIENT UP WITH SBA, GB, AND WALKER. PATIENT DENIES PAIN AT START OF THE SHIFT, BUT C/O OF PAIN, SHE RECEIVED HYDROCODONE 1 TABLET THIS SHIFT. PATIENT ASSISTED UP TO THE CHAIR, WHERE SHE SPENT MOST OF THE DAY. PATIENT HAS URINATED FREQUENTLY, W/O DIFFICULTY. PATIENT REQUESTED MOM, THIS RN NOTIFIED DR MURPHY, ORDER RECEIVED.[PATIENT HAS LEFT FOREARM IV IN PLACE, SHE RECEIVED 2 IV ABX THIS SHIFT. WOUND CARE TO LEFT LEG DONE BY DR PLASCENCIA THIS AM. WILL CONTINUE TO MONITOR.
[2020-10-02 19:44] VITALS: BP 165/85
[2020-10-03 03:55] VITALS: BP 167/70
[2020-10-03 04:55] LABS: HEMATOCRIT 28.4 % (37.0-47.0); HEMOGLOBIN 8.8 gm/dL (12.0-15.0); MCHC 31.1 g/dL (28.0-37.0); MCV 74.1 fL (80.0-100.0); RBC 3.83 mil/uL (4.20-5.00); RDW 15.2 % (10.5-14.5); WBC 5.4 thou/uL (4.0-11.0)
[2020-10-03 04:57] LABS: CALCIUM 8.6 mg/dL (8.5-10.1); CREATININE 0.7 mg/dL (0.6-1.0); MAGNESIUM 1.8 mg/dL (1.8-2.4); POTASSIUM 3.4 mmol/L (3.5-5.1)
--- NOTE | 2020-10-03 06:26 | NUR ---
PT CALLS FOR HELP. UP WITH ROLLER WALKER TO THE BATHROOM. DRSG TO LLE IS C/D/I.PT RECD PRN MOM LAST HS BUT NO BM YET. DENIES ANY NAUSEA OR VOMITING. BP ELEVATED,DENIES ANY HEADACHE OR DIZZINESS. WILL RECHECK THIS AM. PT VOIDING OKAYA. AFEBRILE.NO FURTHER CONCERNS.
[2020-10-03 07:20] VITALS: BP 178/94
--- NOTE | 2020-10-03 10:54 | NUR ---
ASSUMED CARE OF PATIENT AT 0745 PT ALERT XS 4 TOOK AM MEDS AND ATE BREAKFAST. PT CONT OF B&B WALKS TO BATHROOM. PT PLEASANT AND CIOOPERATIVE WITH CARE.
[2020-10-03 16:25] VITALS: BP 147/55
[2020-10-03 19:31] VITALS: BP 142/54
[2020-10-04 05:23] LABS: HEMATOCRIT 30.1 % (37.0-47.0); HEMOGLOBIN 9.1 gm/dL (12.0-15.0); MCH 22.5 pg (26.0-34.0); MCHC 30.4 g/dL (28.0-37.0); MCV 74.1 fL (80.0-100.0); RBC 4.07 mil/uL (4.20-5.00); RDW 15.8 % (10.5-14.5); WBC 4.7 thou/uL (4.0-11.0)
[2020-10-04 05:36] LABS: CALCIUM 8.5 mg/dL (8.5-10.1); CREATININE 0.7 mg/dL (0.6-1.0); POTASSIUM 3.5 mmol/L (3.5-5.1)
--- NOTE | 2020-10-04 05:45 | NUR ---
Assumed care of patient this pm shift. Patient calm, pleasant and cooperative. Takes medications whole. Ambulates with walker. Falls precautions in place. Alert and oriented x4. Recieved norco for pain. IV antibiotics given throughout the night. IV in left wrist, new transparent dressing in place. Assessment shows no signs of acute distress. We will continue to monitor per hospital policy.
[2020-10-04 05:57] VITALS: BP 150/60
[2020-10-04 07:10] VITALS: BP 156/74
--- NOTE | 2020-10-04 07:34 | NUR ---
ASSUMED CARE OF PATIENT ALERT XS 4 NO PAIN OR RESP DISTRESS, AMBULATES WITH WALKER AND STAEDY GAIT TO BATHROOM. PLEASANT AND COOPERATIVE WITH CARE.
[2020-10-04] MEDS ORDERED: CIPROFLOXACIN250 M2 PO (10:34)
[2020-10-04] MEDS ORDERED: BACTRIM DS TAB1 EACH PO (10:35)
[2020-10-04 10:51] VITALS: BP 176/91
--- NOTE | 2020-10-04 11:00 | NUR ---
ON-GOING ASSESSMENT: CM REVIEWED CHART AND SPOKE WITH ATTENDING AND ID. PT IS ABLE TO TRANSITION OFF OF IV ANTIBIOTICS AND DISCHARGE HOME TODAY WITH HOME HEALTH. [facility] HAS ACCEPTED PT AND CM NOTIFIED THEM OF DISCHARGE. CM ALSO FAXED DISCHARGE ORDERS WELL NEGATIVE COVID TEST TO THEM AND CONFIRMED THEY RECEIVED IT. [facility] ALREADY HAD DELIVERED A WALKER TO PATIENTS ROOM FOR DISCHARGE. PT REPORTS NO FURTHER NEEDS FROM CM .
[2020-10-04 11:43] VITALS: BP 176/91
--- NOTE | 2020-10-04 11:52 | NUR ---
DISCHARGE PAPERS REVIEWED SIGNED AND COPY IN CHART. IV ACSESS DCD. WOUND CARE TO LEFT LOWER LEG CALF DONE WOUND CARE PICTURES TAKEN. GAVE PO CIPROFLOXACIN AND BACTRIM ORDERED, ALL BELONGINGS PACKED AND SENT WITH PATIENT. AT BEDSIDE.
--- NOTE | 2020-10-04 12:00 | NUR ---
SANTY SENT WITH PATIENT
[2020-10-04 12:21] VITALS: BP 176/91
== END 2020-10-04 12:21 | disposition home health service (06) | DRG 574 ==
LOC: ER 16:06 → EROBS 21:19 → 4S 21:19
PROVIDERS: Internal Medicine; Nurse Practitioner; ADMIT Hospitalist; ATTEND Hospitalist
PROC: 0HRLXK3 Replacement of Left Lower Leg Skin with Nonautologous Tissue Substitute, Full Thickness, External Approach (ICD-10-PCS; principal; 2020-09-29)
PROC: 0JDP0ZZ Extraction of Left Lower Leg Subcutaneous Tissue and Fascia, Open Approach (ICD-10-PCS; principal; 2020-09-29)
PROC: 0KBT0ZZ Excision of Left Lower Leg Muscle, Open Approach (ICD-10-PCS; principal; 2020-09-29)
DX: L97.829 Non-pressure chronic ulcer of other part of left lower leg with unspecified severity (principal); E44.1 Mild protein-calorie malnutrition; I83.223 Varicose veins of left lower extremity with both ulcer of ankle and inflammation; I25.10 Atherosclerotic heart disease of native coronary artery without angina pectoris; I10 Essential (primary) hypertension; F41.9 Anxiety disorder, unspecified; D50.9 Iron deficiency anemia, unspecified; E78.5 Hyperlipidemia, unspecified; R53.81 Other malaise; K59.00 Constipation, unspecified; I73.9 Peripheral vascular disease, unspecified; Z20.822 Contact with and (suspected) exposure to COVID-19; Z96.652 Presence of left artificial knee joint; S81.802A Unspecified open wound, left lower leg, initial encounter; X58.XXXA Exposure to other specified factors, initial encounter; Z79.82 Long term (current) use of aspirin; Z79.899 Other long term (current) drug therapy; Z88.0 Allergy status to penicillin; Z68.34 Body mass index [BMI] 34.0-34.9, adult; Y93.89 Activity, other specified; Y92.89 Other specified places as the place of occurrence of the external cause; Y99.8 Other external cause status
CPT/HCPCS: 10195; 50010; 50101; 50386; 50403; 57119; 57120; 57192; 62110; 62900; 70005

== ENCOUNTER → 2020-10-07 | Outpatient (CLI) | payer OTHER ==
[~2020-10-07] MED LIST changes: +BACTRIM DS TAB1 EAC1 PO; +BACTRIM DS TAB1 EACH PO; +CIPROFLOXACIN250 M2 PO
== END ==
LOC: HYPER 14:29
PROVIDERS: ATTEND Emergency Medicine
DX: I87.332 Chronic venous hypertension (idiopathic) with ulcer and inflammation of left lower extremity (principal); L97.822 Non-pressure chronic ulcer of other part of left lower leg with fat layer exposed; L84 Corns and callosities; R60.0 Localized edema; B35.3 Tinea pedis; E66.09 Other obesity due to excess calories; I25.10 Atherosclerotic heart disease of native coronary artery without angina pectoris; F41.9 Anxiety disorder, unspecified; Z79.82 Long term (current) use of aspirin; Z68.1 Body mass index [BMI] 19.9 or less, adult

== ENCOUNTER → 2020-10-21 | Outpatient (CLI) | payer OTHER | LOC: HYPER 14:05 | PROVIDERS: ATTEND Emergency Medicine | DX: I87.332 Chronic venous hypertension (idiopathic) with ulcer and inflammation of left lower extremity (principal); L97.822 Non-pressure chronic ulcer of other part of left lower leg with fat layer exposed; L84 Corns and callosities; R60.0 Localized edema; B35.3 Tinea pedis; E66.09 Other obesity due to excess calories; I25.10 Atherosclerotic heart disease of native coronary artery without angina pectoris; F41.9 Anxiety disorder, unspecified; Z79.82 Long term (current) use of aspirin; Z68.1 Body mass index [BMI] 19.9 or less, adult ==

== ENCOUNTER → 2020-11-11 | Outpatient (CLI) | payer OTHER | LOC: HYPER 13:58 | PROVIDERS: ATTEND Emergency Medicine | DX: I87.332 Chronic venous hypertension (idiopathic) with ulcer and inflammation of left lower extremity (principal); L97.822 Non-pressure chronic ulcer of other part of left lower leg with fat layer exposed; L84 Corns and callosities; R60.0 Localized edema; B35.3 Tinea pedis; E66.09 Other obesity due to excess calories; I25.10 Atherosclerotic heart disease of native coronary artery without angina pectoris; F41.9 Anxiety disorder, unspecified; Z79.82 Long term (current) use of aspirin; Z68.1 Body mass index [BMI] 19.9 or less, adult ==

== ENCOUNTER → 2020-11-25 | Outpatient (CLI) | payer OTHER | LOC: HYPER 14:09 | PROVIDERS: ATTEND Emergency Medicine | DX: I87.332 Chronic venous hypertension (idiopathic) with ulcer and inflammation of left lower extremity (principal); L97.822 Non-pressure chronic ulcer of other part of left lower leg with fat layer exposed; L84 Corns and callosities; I89.0 Lymphedema, not elsewhere classified; R60.0 Localized edema; B35.3 Tinea pedis; E66.09 Other obesity due to excess calories; I25.10 Atherosclerotic heart disease of native coronary artery without angina pectoris; F41.9 Anxiety disorder, unspecified; Z79.82 Long term (current) use of aspirin; Z68.1 Body mass index [BMI] 19.9 or less, adult ==

== ENCOUNTER → 2020-12-09 | Outpatient (CLI) | payer OTHER | LOC: HYPER 13:23 | PROVIDERS: ATTEND Emergency Medicine | DX: I87.332 Chronic venous hypertension (idiopathic) with ulcer and inflammation of left lower extremity (principal); L97.822 Non-pressure chronic ulcer of other part of left lower leg with fat layer exposed; L84 Corns and callosities; I89.0 Lymphedema, not elsewhere classified; R60.0 Localized edema; B35.3 Tinea pedis; E66.09 Other obesity due to excess calories; I25.10 Atherosclerotic heart disease of native coronary artery without angina pectoris; F41.9 Anxiety disorder, unspecified; Z79.82 Long term (current) use of aspirin; Z68.1 Body mass index [BMI] 19.9 or less, adult ==

== ENCOUNTER → 2020-12-23 | Outpatient (CLI) | payer OTHER | LOC: HYPER 13:52 | PROVIDERS: ATTEND Emergency Medicine | DX: I87.332 Chronic venous hypertension (idiopathic) with ulcer and inflammation of left lower extremity (principal); L97.822 Non-pressure chronic ulcer of other part of left lower leg with fat layer exposed; L84 Corns and callosities; I89.0 Lymphedema, not elsewhere classified; R60.0 Localized edema; B35.3 Tinea pedis; E66.09 Other obesity due to excess calories; I25.10 Atherosclerotic heart disease of native coronary artery without angina pectoris; F41.9 Anxiety disorder, unspecified; Z79.82 Long term (current) use of aspirin; Z68.1 Body mass index [BMI] 19.9 or less, adult ==

== ENCOUNTER → 2021-01-27 | Outpatient (CLI) | payer OTHER | LOC: HYPER 10:36 | PROVIDERS: ATTEND Emergency Medicine | DX: I87.332 Chronic venous hypertension (idiopathic) with ulcer and inflammation of left lower extremity (principal); L97.822 Non-pressure chronic ulcer of other part of left lower leg with fat layer exposed; L84 Corns and callosities; I89.0 Lymphedema, not elsewhere classified; R60.0 Localized edema; B35.3 Tinea pedis; E66.09 Other obesity due to excess calories; I25.10 Atherosclerotic heart disease of native coronary artery without angina pectoris; F41.9 Anxiety disorder, unspecified; Z79.82 Long term (current) use of aspirin; Z68.1 Body mass index [BMI] 19.9 or less, adult ==

== ENCOUNTER → 2021-02-10 | Outpatient (CLI) | payer OTHER | LOC: HYPER 08:51 | PROVIDERS: ATTEND Emergency Medicine | DX: I87.332 Chronic venous hypertension (idiopathic) with ulcer and inflammation of left lower extremity (principal); L97.822 Non-pressure chronic ulcer of other part of left lower leg with fat layer exposed; L84 Corns and callosities; I89.0 Lymphedema, not elsewhere classified; R60.0 Localized edema; B35.3 Tinea pedis; E66.09 Other obesity due to excess calories; I25.10 Atherosclerotic heart disease of native coronary artery without angina pectoris; F41.9 Anxiety disorder, unspecified; Z79.82 Long term (current) use of aspirin; Z68.1 Body mass index [BMI] 19.9 or less, adult ==

== ENCOUNTER → 2021-02-24 | Outpatient (CLI) | payer OTHER | LOC: HYPER 08:18 | PROVIDERS: ATTEND Emergency Medicine | DX: I87.332 Chronic venous hypertension (idiopathic) with ulcer and inflammation of left lower extremity (principal); L97.822 Non-pressure chronic ulcer of other part of left lower leg with fat layer exposed; I89.0 Lymphedema, not elsewhere classified; L84 Corns and callosities; B35.3 Tinea pedis; E66.09 Other obesity due to excess calories; F41.9 Anxiety disorder, unspecified; Z79.82 Long term (current) use of aspirin; Z79.899 Other long term (current) drug therapy ==

== ENCOUNTER → 2021-03-17 | Outpatient (CLI) | payer OTHER | LOC: HYPER 09:15 | PROVIDERS: ATTEND Emergency Medicine | DX: I87.332 Chronic venous hypertension (idiopathic) with ulcer and inflammation of left lower extremity (principal); L97.822 Non-pressure chronic ulcer of other part of left lower leg with fat layer exposed; I89.0 Lymphedema, not elsewhere classified; L84 Corns and callosities; B35.3 Tinea pedis; E66.09 Other obesity due to excess calories; F41.9 Anxiety disorder, unspecified; Z79.82 Long term (current) use of aspirin ==

== ENCOUNTER → 2021-03-31 | Outpatient (CLI) | payer OTHER | LOC: HYPER 08:29 | PROVIDERS: ATTEND Emergency Medicine | DX: I87.332 Chronic venous hypertension (idiopathic) with ulcer and inflammation of left lower extremity (principal); L97.822 Non-pressure chronic ulcer of other part of left lower leg with fat layer exposed; L97.312 Non-pressure chronic ulcer of right ankle with fat layer exposed; I89.0 Lymphedema, not elsewhere classified; L84 Corns and callosities; B35.3 Tinea pedis; E66.09 Other obesity due to excess calories; F41.9 Anxiety disorder, unspecified; Z79.82 Long term (current) use of aspirin ==

== ENCOUNTER → 2021-04-14 | Outpatient (CLI) | payer OTHER | LOC: HYPER 08:23 | PROVIDERS: ATTEND Emergency Medicine | DX: I87.332 Chronic venous hypertension (idiopathic) with ulcer and inflammation of left lower extremity (principal); L97.822 Non-pressure chronic ulcer of other part of left lower leg with fat layer exposed; L97.312 Non-pressure chronic ulcer of right ankle with fat layer exposed; I89.0 Lymphedema, not elsewhere classified; L84 Corns and callosities; B35.3 Tinea pedis; I10 Essential (primary) hypertension; E66.09 Other obesity due to excess calories; F41.9 Anxiety disorder, unspecified; Z79.82 Long term (current) use of aspirin; Z79.899 Other long term (current) drug therapy ==

== ENCOUNTER → 2021-04-28 | Outpatient (CLI) | payer OTHER | LOC: HYPER 08:03 | PROVIDERS: ATTEND Emergency Medicine | DX: I87.332 Chronic venous hypertension (idiopathic) with ulcer and inflammation of left lower extremity (principal); L97.822 Non-pressure chronic ulcer of other part of left lower leg with fat layer exposed; L97.312 Non-pressure chronic ulcer of right ankle with fat layer exposed; I89.0 Lymphedema, not elsewhere classified; L84 Corns and callosities; B35.3 Tinea pedis; E66.09 Other obesity due to excess calories; F41.9 Anxiety disorder, unspecified; Z79.82 Long term (current) use of aspirin; Z79.899 Other long term (current) drug therapy ==